=== PATIENT | female | born 2000 | race Caucasian/White ===

== ENCOUNTER → 2024-05-25 | Day surgery (SDC) | payer BC ==
[~2024-05-25] MED LIST: ACETAMINOPHEN 1000 MG/100 ML IV ONE; ADDERALL 20 MG20 MG PO; BUPIVACAINE 0.5%/EPI 30 ML SDV INJ ONE; DEXAMETHASONE SOD PHOS INJ 4 MG/ML SDV ONE; FAMOTIDINE 20 MG/2 ML VIAL IV ONE; FENTANYL CITRATE/PF 100MCG/2 ML INJ ONE; HYDROCODON-ACE1 EA11 PO; IBUPROFEN200 MG PO; LIDOCAINE HCL 2% LOCAL INJ 5 ML SDV VIAL INJ ONE; NUVARING VAGIN1 EACH; ONDANSETRON HCL INJ 2MG/ML 2ML 2 MG/ML VIAL ONE; PROPOFOL IV EMULSION 10 MG/ML 20 ML VIAL ONE; ROCURONIUM BROMIDE 10 MG/ML 5ML VIAL IV ONE; SERTRALINE HCL100 MG PO; SEVOFLURANE INHAL SOLN 250 ML PEN BTL ONE; SUGAMMADEX SODIUM 200 MG/2 ML VIAL IV ONE; WELLBUTRIN XL300 MG PO
[2024-05-25 11:34] LABS: BILIRUBIN,URINE NEGATIVE (NEGATIVE); CLARITY,URINE CLEAR (CLEAR); COLOR,URINE YELLOW (YELLOW); GLUCOSE, URINE NEGATIVE (NEGATIVE); KETONES,URINE NEGATIVE (NEGATIVE); LEUKOCYTE ESTERASE ,URINE NEGATIVE (NEGATIVE); NITRITE,URINE NEGATIVE (NEGATIVE); PH,URINE 6.5 (5 - 7); PROTEIN,URINE DIPSTICK NEGATIVE (NEGATIVE); URINE UROBILINOGEN 0.2 mg/dL (0.2 - 1)
[2024-05-25] MEDS: LACTATED RINGER'S 1,000 ML ONE (12:04)
[2024-05-25] MEDS: FENTANYL CITRATE/PF 100MCG/2 ML INJ ONE (15:04)
[2024-05-25 16:15] VITALS: BP 128/81; PULSE 84; RESP 17; O2SAT 98
== END | disposition home or self-care (01) ==
LOC: OR 10:49
PROVIDERS: ATTEND Obstetrics & Gynecology
DX: N80.122 Deep endometriosis of left ovary (principal); N83.02 Follicular cyst of left ovary; N80.329 Endometriosis of the posterior cul-de-sac, unspecified depth; N80.A0 Endometriosis of bladder, unspecified depth; N80.352 Endometriosis of the left pelvic sidewall, unspecified depth; F31.9 Bipolar disorder, unspecified; F41.9 Anxiety disorder, unspecified; F90.9 Attention-deficit hyperactivity disorder, unspecified type; G43.909 Migraine, unspecified, not intractable, without status migrainosus; Z79.899 Other long term (current) drug therapy
CPT/HCPCS: 49321; 58662; 81003; 81025; 88305; 88342; J0131; J1100; J2003; J2405; J2704; J3010; J7121; 88304